=== PATIENT | female | born 2000 | race Two or more races ===

== ENCOUNTER 2021-07-03 06:48 | Emergency (ER) | payer BC, OTHER ==
[~2021-07-03] VITALS: Ht 170.2 cm; Wt 97.5 kg
[2021-07-03 07:05] VITALS: BP 137/87
[2021-07-03] MEDS ORDERED: ONDANSETRON ODT 4 MG TAB PO ONE (08:30)
[2021-07-03] MEDS ORDERED: ACETAMINOPHEN 325 MG TAB PO ONE (08:30)
[2021-07-03] MEDS ORDERED: cefTRIAXone SOD 1,000 MG VL IM ONE (09:00)
== END 2021-07-03 11:58 | disposition home or self-care (01) ==
LOC: ER 06:48 → EDBD 06:48 → ER 11:58
DX: S90.852A Superficial foreign body, left foot, initial encounter (principal); R10.11 Right upper quadrant pain; R11.0 Nausea; V43.62XA Car passenger injured in collision with other type car in traffic accident, initial encounter; Y93.89 Activity, other specified; Y92.410 Unspecified street and highway as the place of occurrence of the external cause; Y99.8 Other external cause status
CPT/HCPCS: 73630; 74176; 81025; 96372; 99285; J0696; Q0162

== ENCOUNTER 2024-05-23 21:24 | Emergency (ER) | payer BC, MEDICAID, OTHER ==
[~2024-05-23] VITALS: Ht 165.1 cm; Wt 121.5 kg
[2024-05-23 22:03] LABS: Basophils # (auto) 0 10 ^3/uL (0-0.2); Basophils % (auto) 0.5 % (0.0-2.0); Eosinophils # (auto) 0.1 10 ^3/uL (0-0.8); Eosinophils % (auto) 0.9 % (0.0-7.0); Hematocrit 37.3 % (36.0-46.0); Lymphocytes # (auto) 3.1 10 ^3/uL (0.4-5.4); Lymphocytes % (auto) 31.5 % (10.0-50.0); Mean Corpuscular Hemoglobin 31.2 pg (28.0-32.0); Mean Corpuscular Hgb Conc. 34.8 g/dL (32.0-36.0); Mean Corpuscular Volume 89.5 fL (80.0-100.0); Monocytes # (auto) 0.5 10 ^3/uL (0-1.3); Monocytes % (auto) 4.8 % (0.0-12.0); Neutrophils # (auto) 6.2 10 ^3/uL (1.6-8.6); Neutrophils % (auto) 62.3 % (37.0-80.0); Nucleated Red Blood Cells % 0.1 %; Platelet Count (auto) 365 10^3/uL (140-450); Red Blood Cells 4.17 10^6/uL (4.0-5.20); Red Cell Distribution Width 13.6 % (11.8-14.3); White Blood Cell 9.9 10^3/uL (4.4-10.8)
[2024-05-23 22:11] VITALS: PULSE 89; RESP 16; TEMP 97.8; O2SAT 97
--- NOTE | 2024-05-23 22:15 | ED.PDOC ---
GI ASSESSMENT HPI Comments 24-year-old female who came to ER for abdominal pain. Patient states she has been having intermittent episodes of upper abdominal pain for the past 2 months. States pain has worsened today associated bouts of nausea and vomiting. States pain will radiate to the back. Status post . Patient unsure if she is . 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 History Family History Family History: Reviewed,noncontributory to illness Social History Smoker: Non-Smoker Alcohol: Denies ETOH Use Drugs: Denies Drug Use Lives In: Home Constitutional: denies: chills, diaphoresis, fatigue, fever, malaise, sweats, weakness, others EENTM: denies: blurred vision, double vision, ear bleeding, ear discharge, ear drainage, ear pain, ear ringing, eye pain, eye redness, hearing loss, mouth pain, mouth swelling, nasal discharge, nose bleeding, nose congestion, nose pain, photophobia, tearing, throat pain, throat swelling, voice changes, others Respiratory: denies: cough, hemoptysis, orthopnea, SOB at rest, shortness of breath, SOB with excertion, stridor, wheezing, others Cardiovascular: denies: chest pain, dizzy spells, diaphoresis, Dyspnea on exertion, edema, irregular heart beat, left arm pain, lightheadedness, palpitations, PND, syncope, others Gastrointestinal: reports: abdominal pain, nausea, vomiting; denies: abdomen distended, blood streaked bowels, constipated, diarrhea, dysphagia, difficulty swallowing, hematemesis, melena, poor appetite, poor fluid intake, rectal b leeding, rectal pain, others Genitourinary: denies: abnormal vagina bleeding, burning, dyspareunia, dysuria, flank pain, frequency, hematuria, incontinence, pain, , vagina discharge, urgency, others Neurological: denies: dizziness, fainting, headache, left sided numbness, left sided weakness, numbness, paresthesia, pre-existing deficit, right sided numbness, right sided weakness, seizure, speech problems, tingling, tremors, weakness, others Musculoskeletal: denies: back pain, gout, joint pain, joint swelling, muscle pain, muscle stiffness, neck pain, others Integumetry: denies: bruises, change in color, change in hair/nails, dryness, laceration, lesions, lumps, rash, wounds, others Allergic/Immunocompromised: denies: Difficulty Healing, Frequent Infections, Hives, Itching, others Hematologic/Lymphatic: denies: anemia, blood clots, easy bleeding, easy bruising, swollen glands, others Endocrine: denies: excessive hunger, excessive sweating, excessive thirst, excessive urination, flushing, intolerance to cold, intolerance to heat, unexplained weight gain, unexplained weight loss, others Psychiatric: denies: anxiety, bipolar disorder, depression, hopeless, panic disorder, schizophrenia, sleepless, suicidal, others Physical Exam General Appearance: No Apparent Distress, Normal HEENT: Normal ENT Inspection, Pharynx Normal, TMs Normal Neck: Full Range of Motion, Non-Tender, Normal, Normal Inspection Respiratory: Chest Non-Tender, Lungs Clear, No Accessory Muscle Use, No Respiratory Distress, Normal Breath Sounds Cardiovascular: No Edema, No JVD, No Murmur, No Gallop, Normal Peripheral Pulses, Regular Rate/Rhythm Breast Exam: Deferred Gastrointestinal: Epigastric, No Organomegaly, No Pulsatile Mass, Normal Bowel Sounds, Soft, Tenderness Genitalia: Deferred Pelvic: Deferred Rectal: Deferred Extremities: No calf tenderness, Normal capillary refill, Normal inspection, Normal range of motion, Non-tender, No pedal edema Musculoskeletal : Apperance: Normal Neurologic: Alert, 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 Was a procedure done?: No GI differential Dx Differential Diagnosis: Cholecystitis, Constipation, Diverticular disease, Gastritis/PUD, Gastroenteritis, Pancreatitis, UTI, Urolithiasis, X-Ray, Labs, Meds, VS Vital Signs Date Time Temp Pulse Resp B/P (MAP) Pulse Ox O2 Delivery O2 Flow Rate FiO2 05/23/24 23:30 89 16 97 Room Air* 0 21 05/23/24 22:11 89 16 97 Room Air* 0 21 05/23/24 22:11 97.8 89 16 137/94 (108) 97 97.8 05/23/24 21:39 98.8 111 18 162/88 (112) 94 Lab Test 05/23/24 21:51 05/23/24 21:45 Range/Units White Blood Count 9.9 4.4-10.8 10^3/uL Red Blood Count 4.17 4.0-5.20 10^6/uL Hemoglobin 13.0 12.2-16.2 g/dL Hematocrit 37.3 36.0-46.0 % Mean Corpuscular Volume 89.5 80.0-100.0 fL Mean Corpuscular Hemoglobin 31.2 28.0-32.0 pg Mean Corpuscular Hemoglobin Concent 34.8 32.0-36.0 g/dL Red Cell Distribution Width 13.6 11.8-14.3 % Platelet Count 365 140-450 10^3/uL Mean Platelet Volume 7.7 6.9-10.8 fL Neutrophils (%) (Auto) 62.3 37.0-80.0 % Lymphocytes (%) (Auto) 31.5 10.0-50.0 % Monocytes (%) (Auto) 4.8 0.0-12.0 % Eosinophils (%) (Auto) 0.9 0.0-7.0 % Basophils (%) (Auto) 0.5 0.0-2.0 % Neutrophils # (Auto) 6.2 1.6-8.6 10 ^3/uL Lymphocytes # (Auto) 3.1 0.4-5.4 10 ^3/uL Monocytes # (Auto) 0.5 0-1.3 10 ^3/uL Eosinophils # (Auto) 0.1 0-0.8 10 ^3/uL Basophils # (Auto) 0 0-0.2 10 ^3/uL Nucleated Red Blood Cells 0.1 % Sodium Level 141 136-145 mmol/L Potassium Level 3.9 3.5-5.1 mmol/L Chloride Level 109 H 98-107 mmol/L Carbon Dioxide Level 27 20-31 mmol/L Anion Gap 5 5-15 Blood Urea Nitrogen 9 9-23 mg/dL Creatinine 0.70 0.550-1.02 mg/dL Glomerular Filtration Rate Calc 125 >90 mL/min BUN/Creatinine Ratio 12.9 10.0-20.0 Serum Glucose 110 H 74-106 mg/dL Calcium Level 9.4 8.7-10.4 mg/dL Total Bilirubin 0.3 0.2-1.0 mg/dL Aspartate Amino Transferase (AST) 21 13-40 U/L Alanine Aminotransferase (ALT) 24 7-40 U/L Alkaline Phosphatase 71 46-116 U/L Total Protein 6.5 5.7-8.2 g/dL Albumin 4.1 3.2-4.8 g/dL Lipase 29 12-53 U/L Urine Color Light-yellow Yellow Urine Clarity Clear Clear Urine pH 5.5 5.0-9.0 Urine Specific [place] 1.030 1.001-1.035 Urine Protein Negative Negative Urine Ketones Negative Negative Urine Blood Negative Negative /uL Urine Nitrite Negative Negative Urine Bilirubin Negative Negative Urine Urobilinogen Normal Negative mg/dL Urine Leukocyte Esterase 1+ Negative /uL Urine RBC 3 0 - 4 /hpf Urine WBC 1 0 - 5 /hpf Urine Squamous Epithelial Cells Few <5 /hpf Urine Bacteria Few H None Seen /hpf Urine Mucus Few None Seen Urine Yeast (Budding) None seen None Seen /hpf Urine Glucose Normal Normal mg/dL Urine Test Negative Negative Current Medications Medications (Trade) Dose Ordered Sig/Neyda Route Start Time Stop Time Status Last Admin Sodium Chloride 1,000 ml @ 1,000 mls/hr Q1H ONCE IV 05/23/24 22:00 05/23/24 22:59 DC 05/23/24 22:19 Ondansetron HCl (Zofran) 4 mg ONCE ONCE IV 05/23/24 22:00 05/23/24 22:01 DC 05/23/24 22:19 Time of 1ST Reevaluation: 22:10 Reevaluation 1ST: Unchanged Patient Education/Counseling: Diagnosis, Treatment Family Education/Counseling: No Family Present Departure 1 Departure Time of Disposition: 02:56 (Patient presented with abdominal pain that was concerning for possible appendicits, gastritis, cholecystitis, colitis, gastroenteritis, or orther possible surgical emergency. Data: 1. I ordered and reviewed the result of at least 3 labs including a CBC, BMP, and Urinalysis. 2. I independently interpreted the following tests: Ultrasound is concerning for gallstones.Risk:This patient has a high risk of morbidity due to further diagnostic testing or treatment and may suffer from an acute abdominal process disorder. Fortunately workup reveals biliary colic and patient can be safely discharged to home with outpatient follow up.) Impression: Primary Impression: Biliary colic Disposition: HOME / SELF CARE / HOMELESS Condition: Stable Additional Instructions: You have gallbladder stones. For pain you can take the followinam: Ibuprofen 400mg with food Noon: Acetaminophen 1000mg 4pm: Ibuprofen 400mg with food 8pm: Acetaminophen 1000mg Please take as directed. You were referred to a general surgeon. Please call for an appointment. If your symptoms worsen or you have any other concerns then please return to the ER. Discharged With: Self Critical Care Note Critical Care Time?: Yes Critical care comment: Intractable abdominal pain Authorized and Performed by: Lay Chamberlain MD Total critical care time: Approximately 38 minutes Due to a high probability of clinically significant, life threatening deterioration, the patient required my highest level of preparedness to intervene emergently and I personally spent this critical care time directly and personally managing the patient. This critical care time included obtaining a history; examining the patient; pulse oximetry; ordering and review of studies; arranging urgent treatment with development of a management plan; evaluation of patient's response to treatment; frequent reassessment; and, discussions with other providers. This critical care time was performed to assess and manage the high probability of imminent, life-threatening deterioration that could result in multi-organ failure. It was exclusive of separately billable procedures and treating other patients and teaching time. Please see my other sections and the rest of the note for further information on patient assessment and treatment. Stability Stability form required: No Heart Score Heart Score: Heart Score Response (Comments) Value History N/A 0 EKG N/A 0 Age N/A 0 Risk Factors N/A 0 Troponin N/A 0 Total 0 I personally scribed for LAY CHAMBERLAIN MD ([email or web address]) on 05/23/24 at 22:15. Electronically submitted by Jun Castillo ([email or web address]). LAY CHAMBERLAIN MD May 23, 2024 22:15
[2024-05-23] MEDS: ONDANSETRON HCL 4 MG/2 ML VIAL IV ONE (22:19)
[2024-05-23] MEDS: SODIUM CHLORIDE 0.9% 1,000 ML IV ONE (22:19)
[2024-05-23 22:22] LABS: Alanine Aminotransferase 24 U/L (7-40); Albumin 4.1 g/dL (3.2-4.8); Alkaline Phosphatase 71 U/L (46-116); Anion Gap 5 (5-15); Aspartate Aminotransferase 21 U/L (13-40); BUN/Creatinine Ratio 12.9 (10.0-20.0); Bilirubin, Total 0.3 mg/dL (0.2-1.0); Blood Urea Nitrogen 9 mg/dL (9-23); Calcium 9.4 mg/dL (8.7-10.4); Carbon Dioxide 27 mmol/L (20-31); Chloride 109 mmol/L (98-107); Glucose 110 mg/dL (74-106); Potassium 3.9 mmol/L (3.5-5.1); Sodium 141 mmol/L (136-145); Total Protein 6.5 g/dL (5.7-8.2)
[2024-05-23 22:32] LABS: Lipase 29 U/L (12-53)
[2024-05-23 23:30] VITALS: PULSE 89; RESP 16; O2SAT 97
[2024-05-23 23:32] LABS: Urine Bacteria FEW /hpf (None Seen); Urine Blood Negative /uL (Negative); Urine Budding Yeast None Seen /hpf (None Seen); Urine Clarity Clear (Clear); Urine Color Light-Yellow (Yellow); Urine Mucus FEW (None Seen); Urine Protein, UAD Negative (Negative); Urine Urobilinogen Normal (Negative); Urine WBC 1 /hpf (0 - 5); Urine pH 5.5 (5.0-9.0)
--- NOTE | 2024-05-24 02:35 | DVH ---
INDICATION: Pain. TECHNIQUE: Multiple real-time sonographic images of the abdomen were obtained. COMPARISON: None FINDINGS: The liver is heterogeneoous in echogenicity. The liver measures 19cm. No intrahepatic lindsay iary ductal dilatation is noted. The gallbladder wall measures 0.1 cm and is unremarkable. gallstones are seen. The common duct measures 0.4 cm and is unremarkable. No pericholecystic fluid is noted. The right kidney measures 9cm. No hydronephrosis. The pancreas is not well visualized due to obscuration from bowel gas. The visualized portions of the IVC and aorta are grossly unremarkable. IMPRESSION: Gallstones.
[2024-05-24 03:06] VITALS: BP 104/57; PULSE 88; RESP 14; O2SAT 96
== END 2024-05-24 03:18 | disposition home or self-care (01) ==
LOC: ER 21:24
DX: K80.50 Calculus of bile duct without cholangitis or cholecystitis without obstruction (principal); Z32.02 Encounter for pregnancy test, result negative
CPT/HCPCS: 36415; 76705; 80053; 81001; 81025; 83690; 85025; 96361; 96374; 99285; J2405; J7030

== ENCOUNTER 2024-08-08 18:53 | Inpatient (IN) | payer MEDICAID ==
[~2024-08-08] VITALS: Ht 167.6 cm; Wt 124.9 kg
[2024-08-08 19:26] LABS: Urine Bacteria None Seen /hpf (None Seen)
[2024-08-08 19:44] LABS: Urine Blood Negative /uL (Negative); Urine Clarity Clear (Clear); Urine Color Yellow (Yellow); Urine Protein, UAD Negative (Negative); Urine Specific Gravity 1.006 (1.001-1.035); Urine Squamous Epithelial Cell FEW /hpf (<5); Urine Urobilinogen Normal (Negative); Urine WBC 1 /HPF (0-5)
[2024-08-08 19:52] LABS: Basophils # (auto) 0 10 ^3/uL (0-0.2); Basophils % (auto) 0.1 % (0.0-2.0); Eosinophils # (auto) 0 10 ^3/uL (0-0.8); Hematocrit 42.9 % (36.0-46.0); Hemoglobin 14.5 g/dL (12.2-16.2); Lymphocytes # (auto) 2.1 10 ^3/uL (0.4-5.4); Lymphocytes % (auto) 10.6 % (10.0-50.0); Mean Corpuscular Hemoglobin 30.2 pg (28.0-32.0); Mean Corpuscular Hgb Conc. 33.7 g/dL (32.0-36.0); Mean Corpuscular Volume 89.5 fL (80.0-100.0); Monocytes # (auto) 0.8 10 ^3/uL (0-1.3); Monocytes % (auto) 4.3 % (0.0-12.0); Neutrophils # (auto) 16.8 10 ^3/uL (1.6-8.6); Platelet Count (auto) 450 10^3/uL (140-450); Red Blood Cells 4.79 10^6/uL (4.0-5.20); Red Cell Distribution Width 13.6 % (11.8-14.3); White Blood Cell 19.8 10^3/uL (4.4-10.8)
[2024-08-08 20:10] VITALS: PULSE 113; RESP 16; O2SAT 96
[2024-08-08 20:13] LABS: Albumin 4.7 g/dL (3.2-4.8); Anion Gap 10 (5-15); BUN/Creatinine Ratio 8.2 (10.0-20.0); Calcium 10.2 mg/dL (8.7-10.4); Carbon Dioxide 21 mmol/L (20-31); Chloride 106 mmol/L (98-107); Potassium 3.8 mmol/L (3.5-5.1); Sodium 137 mmol/L (136-145)
[2024-08-08 20:14] LABS: Total Protein 7.7 g/dL (5.7-8.2)
[2024-08-08 20:18] LABS: Alanine Aminotransferase 484 U/L (7-40); Alkaline Phosphatase 163 U/L (46-116); Aspartate Aminotransferase 333 U/L (13-40); Bilirubin, Total 1.7 mg/dL (0.2-1.0); Blood Urea Nitrogen 6 mg/dL (9-23); Glucose 113 mg/dL (74-106)
[2024-08-08] MEDS: ONDANSETRON ODT 4 MG TAB PO ONE (20:19)
[2024-08-08] MEDS: KETOROLAC TROMETH 30 MG/ML 1ML VIAL IM ONE (20:19)
[2024-08-08 20:21] LABS: Lipase 1044 U/L (12-53)
--- NOTE | 2024-08-08 21:43 | DVH ---
Exam: CT CT AB PEL WO CON-NO ORAL OR IV History: ABD PAIN Comparison Study: None available at time of dictation. TECHNIQUE: Multidetector CT of the abdomen was performed from lung bases to pubic symphysis. Imaging was performed without IV contrast. Axial, coronal and sagittal multiplanar reformats were obtained fr om the axial data set by the technologist. Radiation Dose Information: CT Dose: CTDI volume is 26.16 mGy. Dose-length product is 1608.85 mGy*cm FINDINGS: Evaluation of solid organs is limited due to lack of intravenous contrast use. Findings: Lung Bases: No acute or significant lung base finding. Normal heart size. No pleural or pericardial effusion. Liver: The liver is normal in size. No focal lesions. Gallbladder and Biliary Tree: Is contracted with no calcified gallstones Spleen: Unremarkable Pancreas: Mild peripancreatic inflammatory changes in the surrounding mesenteric fat. Correlate for possible pancreatitis. Adrenal Glands: Unremarkable Kidneys: Kidneys are grossly normal without calculi or hydronephrosis. Bladder: Grossly unremarkable for degree of distention. Bowel: The stomach is grossly normal in appearance. Small bowel and colon are normal in caliber and d istribution. The appendix is not visualized; however, no secondary findings of acute appendicitis id entified. Ascites: Absent Lymphadenopathy: No mesenteric, retroperitoneal or periportal lymphadenopathy. Abdominal Wall and Mesentery: Unremarkable. Vasculature: The visualized abdominal aorta is normal in size and caliber. Evaluation of abdominal a nd pelvic vessels is limited due to lack of intravenous contrast. Pelvic Organs: Unremarkable Musculoskeletal: No aggressive focal bony lesions, acute fractures or dislocation. Soft tissues: Unremarkable IMPRESSION: 1. No nephrolithiasis or hydronephrosis. 2. Mild peripancreatic inflammatory changes correlate for pancreatitis. 3. No findings of bowel obstruction 4. Gallbladder is contracted no calcified gallstones 5. Radiation optimization: All CT scans at this facility use at least one of these dose optimization te chniques: automated exposure control mA and/or kV adjustment per patient size (includes targeted exa ms where dose is matched to clinical indication) or iterative reconstruction.
--- NOTE | 2024-08-08 21:58 | ED.PDOC ---
GI ASSESSMENT HPI Comments 24-year-old female complaining of upper abdominal pain which started two days ago. Has been having intermittent nausea and vomiting. No diarrhea. No constipation. No new foods no new medications. Nothing makes it better, eating makes the pain worse. 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 History Family History Family History: Reviewed,noncontributory to illness Social History Smoker: Non-Smoker Alcohol: Denies ETOH Use Drugs: Denies Drug Use Lives In: Home Constitutional: denies: chills, diaphoresis, fatigue, fever, malaise, sweats, weakness, others EENTM: denies: blurred vision, double vision, ear bleeding, ear discharge, ear drainage, ear pain, ear ringing, eye pain, eye redness, hearing loss, mouth pain, mouth swelling, nasal discharge, nose bleeding, nose congestion, nose pain, photophobia, tearing, throat pain, throat swelling, voice changes, others Respiratory: denies: cough, hemoptysis, orthopnea, SOB at rest, shortness of breath, SOB with excertion, stridor, wheezing, others Cardiovascular: denies: chest pain, dizzy spells, diaphoresis, Dyspnea on exertion, edema, irregular heart beat, left arm pain, lightheadedness, palpitations, PND, syncope, others Gastrointestinal: reports: abdominal pain, nausea, vomiting; denies: abdomen distended, blood streaked bowels, constipated, diarrhea, dysphagia, difficulty swallowing, hematemesis, melena, poor appetite, poor fluid intake, rectal bleeding, rectal pain, others Genitourinary: denies: abnormal vagina bleeding, burning, dyspareunia, dysuria, flank pain, frequency, hematuria, incontinence, pain, , vagina discharge, urgency, others Neurological: denies: dizziness, fainting, headache, left sided numbness, left sided weakness, numbness, paresthesia, pre-existing deficit, right sided numbness, right sided weakness, seizure, speech problems, tingling, tremors, weakness, others Musculoskeletal: denies: back pain, gout, joint pain, joint swelling, muscle pain, muscle stiffness, neck pain, others Integumetry: denies: bruises, change in color, change in hair/nails, dryness, laceration, lesions, lumps, rash, wounds, others Allergic/Immunocompromised: denies: Difficulty Healing, Frequent Infections, Hives, Itching, others Physical Exam General Appearance: No Apparent Distress, Normal HEENT: Normal ENT Inspection, Pharynx Normal, TMs Normal Neck: Full Range of Motion, Non-Tender, Normal, Normal Inspection Respiratory: Chest Non-Tender, Lungs Clear, No Accessory Muscle Use, No Respiratory Distress, Normal Breath Sounds Cardiovascular: No Edema, No JVD, No Murmur, No Gallop, Normal Peripheral Pulses, Regular Rate/Rhythm Breast Exam: Deferred Gastrointestinal: No Organomegaly, Non Tender, No Pulsatile Mass, Normal Bowel Sounds, Soft Genitalia: Deferred Pelvic: Deferred Rectal: Deferred Extremities: No calf tenderness, Normal capillary refill, Normal inspection, Normal range of motion, Non-tender, No pedal edema Musculoskeletal : Apperance: Normal Neurologic: Alert, 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 Was a procedure done?: No GI differential Dx Differential Diagnosis: Gastroenteritis, GI hemorrhage, Pancreatitis X-Ray, Labs, Meds, VS Vital Signs Date Time Temp Pulse Resp B/P (MAP) Pulse Ox O2 Delivery O2 Flow Rate FiO2 08/08/24 20:10 98.7 113 105/82 (90) 96 98.7 08/08/24 20:10 113 16 96 Room Air* 0 21 08/08/24 19:11 98.4 121 18 149/89 (109) 96 Lab Test 08/08/24 19:27 08/08/24 19:15 Range/Units White Blood Count 19.8 H 4.4-10.8 10^3/uL Red Blood Count 4.79 4.0-5.20 10^6/uL Hemoglobin 14.5 12.2-16.2 g/dL Hematocrit 42.9 36.0-46.0 % Mean Corpuscular Volume 89.5 80.0-100.0 fL Mean Corpuscular Hemoglobin 30.2 28.0-32.0 pg Mean Corpuscular Hemoglobin Concent 33.7 32.0-36.0 g/dL Red Cell Distribution Width 13.6 11.8-14.3 % Platelet Count 450 140-450 10^3/uL Mean Platelet Volume 8.1 6.9-10.8 fL Neutrophils (%) (Auto) 85.0 H 37.0-80.0 % Lymphocytes (%) (Auto) 10.6 10.0-50.0 % Monocytes (%) (Auto) 4.3 0.0-12.0 % Eosinophils (%) (Auto) 0.0 0.0-7.0 % Basophils (%) (Auto) 0.1 0.0-2.0 % Neutrophils # (Auto) 16.8 H 1.6-8.6 10 ^3/uL Lymphocytes # (Auto) 2.1 0.4-5.4 10 ^3/uL Monocytes # (Auto) 0.8 0-1.3 10 ^3/uL Eosinophils # (Auto) 0 0-0.8 10 ^3/uL Basophils # (Auto) 0 0-0.2 10 ^3/uL Nucleated Red Blood Cells 0.0 % Sodium Level 137 136-145 mmol/L Potassium Level 3.8 3.5-5.1 mmol/L Chloride Level 106 98-107 mmol/L Carbon Dioxide Level 21 20-31 mmol/L Anion Gap 10 5-15 Blood Urea Nitrogen 6 L 9-23 mg/dL Creatinine 0.73 0.550-1.02 mg/dL Glomerular Filtration Rate Calc 118 >90 mL/min BUN/Creatinine Ratio 8.2 L 10.0-20.0 Serum Glucose 113 H 74-106 mg/dL Calcium Level 10.2 8.7-10.4 mg/dL Total Bilirubin 1.7 H 0.2-1.0 mg/dL Aspartate Amino Transferase (AST) 333 H 13-40 U/L Alanine Aminotransferase (ALT) 484 H 7-40 U/L Alkaline Phosphatase 163 H 46-116 U/L Total Protein 7.7 5.7-8.2 g/dL Albumin 4.7 3.2-4.8 g/dL Lipase 1044 H 12-53 U/L Urine Color Yellow Yellow Urine Clarity Clear Clear Urine pH 7.0 5.0-9.0 Urine Specific [place] 1.006 1.001-1.035 Urine Protein Negative Negative Urine Ketones 1+ H Negative Urine Blood Negative Negative /uL Urine Nitrite Negative Negative Urine Bilirubin Negative Negative Urine Urobilinogen Normal Negative mg/dL Urine Leukocyte Esterase Negative Negative /uL Urine RBC 2 0 - 4 /hpf Urine Microscopic WBC 1 0-5 /HPF Urine Squamous Epithelial Cells Few <5 /hpf Urine Bacteria None seen None Seen /hpf Urine Glucose Normal Normal mg/dL Urine Test Negative Negative Current Medications Medications (Trade) Dose Ordered Sig/Neyda Route Start Time Stop Time Status Last Admin Ketorolac Tromethamine (Toradol Injection) 30 mg ONCE ONCE IM 08/08/24 19:15 08/08/24 19:16 DC 08/08/24 20:19 Ondansetron HCl (Zofran Po) 4 mg ONCE ONCE PO 08/08/24 19:15 08/08/24 19:16 DC 08/08/24 20:19 X-Ray, Labs, Meds, VS Comment Patient will be admitted for acute pancreatitis and a retractable abdominal pain Patient was started on Rocephin and IV hydration Time of 1ST Reevaluation: 21:56 Reevaluation 1ST: Unchanged Patient Education/Counseling: Diagnosis, Treatment Family Education/Counseling: Diagnosis, Treatment Departure 1 Departure Time of Disposition: 21:55 Impression: Primary Impression: Pancreatitis, acute Qualified Codes: K85.00 - Idiopathic acute pancreatitis without necrosis or infection Additional Impression: Abdominal pain Qualified Codes: R10.84 - Generalized abdominal pain Disposition: ADMITTED INPATIENT Condition: Fair Discharged With: Self Critical Care Note Critical Care Time?: No Stability Stability form required: No Heart Score Heart Score: Heart Score Response (Comments) Value History N/A 0 EKG N/A 0 Age N/A 0 Risk Factors N/A 0 Troponin N/A 0 Total 0 WILVER NGUYỄN Aug 08, 2024 21:58
[2024-08-08] MEDS: SODIUM CHLORIDE 0.9% 1,000 ML IV ONE (22:38)
[2024-08-08] MEDS: CIPROFLOXACIN 400MG/200ML 200 ML IV ONE (22:39)
[2024-08-08] MEDS: metroNIDAZOLE 500MG/100ML 100 ML IV ONE (23:12)
--- NOTE | 2024-08-08 23:39 | DVHHPRES ---
History of Present Illness Resident Creating Document: BRAD FLETCHER RESIDENT History of Present Illness Patient is a 24-year-old female with past medical history of gallstones who came in due to abdominal pain. According to the patient abdominal pain started yesterday 1 hour after she ate a sandwich, she describes the pain as constant, excruciating, 10/10 at onset, worsened with lying down, sneezing, coughing. Pain is accompanied with 5 episodes of vomiting today and dry heaving. Patient was diagnosed with strep throat last week and completed a course of antibiotic, last dose was last week. Patient was noted to have a lipase of 1044, CT abdomen pelvis showed mild peripancreatic inflammatory changes correlate for pancreatitis. Gallbladder ultrasound showed cholelithiasis with gallbladder wall thickening and positive sonographic Patel sign concerning for acute cholecystitis. Peripancreatic free fluid. WBC count was 19.8, total bilirubin 1.7, AST 333, ALT 484 and alkaline phosphatase 163 Past Medical History Cholelithiasis Past Surgical History section Smoke: No ALCOHOL: none Drugs: None Lives: with Family Review of Systems Constitutional: Yes: Fever, Chills, Malaise; No: Sweats, Weakness, Other Eyes: No: Pain, Vision change, Conjunctivae inflammation, Eyelid inflammation, Other, Redness ENT: No: Ear pain, Ear discharge, Nose pain, Nose discharge, Nose congestion, Mouth pain, Mouth swelling, Throat pain, Throat swelling, Other Respiratory: No: Cough, Dry, Shortness of breath, SOB with excertion, Wheezing, Hemoptysis, Pleuritic Pain, Sputum, Wheezing, Other Cardiovascular: Palpitations; No: Chest Pain, Orthopnea, Paroxysmal Noc. Dyspnea, Edema, Lt Headedness, Other Gastrointestinal: Nausea, Vomiting, Abdominal Pain; No: Diarrhea, Constipation, Melena, Hematochezia, Other Genitourinary: No Dysuria, No Frequency, No Incontinence, No Hematuria, No Retention, No Other Musculoskeletal: No: other, neck pain, shoulder pain, arm pain, back pain, hand pain, leg pain, foot pain Skin: No: Rash, Lesions, Jaundice, Bruising, Other Neurological: No: Weakness, Numbness, Incoordination, Change in speech, Confusion, Seizures, Other Allergies: Coded Allergies: NO KNOWN ALLERGIES (Unverified , 07/03/21) Exam Vital Signs Vital Signs Date Time Temp Pulse Resp B/P (MAP) Pulse Ox O2 Delivery O2 Flow Rate FiO2 08/08/24 23:02 99 20 96 Room Air 08/08/24 22:43 98.6 96/57 (70) 98.6 08/08/24 20:10 0 21 General Appearance: Alert, Oriented X3, Cooperative, mild distress HEENT: Atraumatic, PERRLA, EOMI, Mucous membr. moist/pink Respiratory: Clear to auscultation, Normal air movement Cardiovascular: Regular rate, Normal S1, Normal S2 Abdominal: Normal bowel sounds, Other (Generalized abdominal tenderness to palpation, most pronounced in the mid abdominal area) Extremities: No clubbing, No cyanosis, No edema Skin: No significant lesion Neuro: Normal gait, Normal speech, Strength at 5/5 X4 ext, Sensation intact Psych/Mental Status: Mental status NL, Mood NL Labs/Xrays Labs Test 08/08/24 19:27 08/08/24 19:15 Range/Units White Blood Count 19.8 H 4.4-10.8 10^3/uL Red Blood Count 4.79 4.0-5.20 10^6/uL Hemoglobin 14.5 12.2-16.2 g/dL Hematocrit 42.9 36.0-46.0 % Mean Corpuscular Volume 89.5 80.0-100.0 fL Mean Corpuscular Hemoglobin 30.2 28.0-32.0 pg Mean Corpuscular Hemoglobin Concent 33.7 32.0-36.0 g/dL Red Cell Distribution Width 13.6 11.8-14.3 % Platelet Count 450 140-450 10^3/uL Mean Platelet Volume 8.1 6.9-10.8 fL Neutrophils (%) (Auto) 85.0 H 37.0-80.0 % Lymphocytes (%) (Auto) 10.6 10.0-50.0 % Monocytes (%) (Auto) 4.3 0.0-12.0 % Eosinophils (%) (Auto) 0.0 0.0-7.0 % Basophils (%) (Auto) 0.1 0.0-2.0 % Neutrophils # (Auto) 16.8 H 1.6-8.6 10 ^3/uL Lymphocytes # (Auto) 2.1 0.4-5.4 10 ^3/uL Monocytes # (Auto) 0.8 0-1.3 10 ^3/uL Eosinophils # (Auto) 0 0-0.8 10 ^3/uL Basophils # (Auto) 0 0-0.2 10 ^3/uL Nucleated Red Blood Cells 0.0 % Sodium Level 137 136-145 mmol/L Potassium Level 3.8 3.5-5.1 mmol/L Chloride Level 106 98-107 mmol/L Carbon Dioxide Level 21 20-31 mmol/L Anion Gap 10 5-15 Blood Urea Nitrogen 6 L 9-23 mg/dL Creatinine 0.73 0.550-1.02 mg/dL Glomerular Filtration Rate Calc 118 >90 mL/min BUN/Creatinine Ratio 8.2 L 10.0-20.0 Serum Glucose 113 H 74-106 mg/dL Calcium Level 10.2 8.7-10.4 mg/dL Total Bilirubin 1.7 H 0.2-1.0 mg/dL Aspartate Amino Transferase (AST) 333 H 13-40 U/L Alanine Aminotransferase (ALT) 484 H 7-40 U/L Alkaline Phosphatase 163 H 46-116 U/L Total Protein 7.7 5.7-8.2 g/dL Albumin 4.7 3.2-4.8 g/dL Lipase 1044 H 12-53 U/L Urine Color Yellow Yellow Urine Clarity Clear Clear Urine pH 7.0 5.0-9.0 Urine Specific [place] 1.006 1.001-1.035 Urine Protein Negative Negative Urine Ketones 1+ H Negative Urine Blood Negative Negative /uL Urine Nitrite Negative Negative Urine Bilirubin Negative Negative Urine Urobilinogen Normal Negative mg/dL Urine Leukocyte Esterase Negative Negative /uL Urine RBC 2 0 - 4 /hpf Urine Microscopic WBC 1 0-5 /HPF Urine Squamous Epithelial Cells Few <5 /hpf Urine Bacteria None seen None Seen /hpf Urine Glucose Normal Normal mg/dL Urine Test Negative Negative Assessment/Plan Assessment/Plan Acute pancreatitis likely due to gallstones; Isabell criteria 2 points at admission Acute cholecystitis with positive sonographic Patel sign Transaminitis due to above - serum lipase 1044 - CT abdomen pelvis: No nephrolithiasis or hydronephrosis. Mild peripancreatic inflammatory changes correlate for pancreatitis. No findings of bowel obstruction Gallbladder is contracted no calcified gallstones - abdominal USG: Cholelithiasis with gallbladder wall thickening and positive sonographic Patel's sign concerning for acute cholecystitis. There is peripancreatic free fluid. If there is concern for gallstone pancreatitis consider further evaluation with MRCP or contrast-enhanced MRI abdomen. Hepatic steatosis. - IV NS 2.5 L bolus, followed by IV NS at 200 cc/hour - IV meropenem Q 8 hours - IV Zofran 4 mg as needed - ordered MRCP DVT prophylaxis: SCDs Goals of care: Full code, discussed for >16 minutes on 08/08/2024 Plan discussed with patient Plan discussed with Dr. Freed Plan discussed with: Patient, Other (RN) My Orders Orders - BRAD FLETCHER RESIDENT Procedure Category Date Status Time Admit ADMIT 08/08/24 Transmitted 23:31 Code Status CODE 08/08/24 Transmitted 23:31 Vital Signs [facility] 08/08/24 Transmitted 23:31 Review Orders With [facility] 08/08/24 Transmitted Adm.Md 23:31 Notify Md Of Changes [facility] 08/08/24 Verified From Base 23:31 Advance Directive [facility] 08/08/24 Verified 23:31 Patient Condition ORDERS 08/08/24 Verified 23:31 Allergies [facility] 08/08/24 Verified 23:31 Notify Md Of Changes [facility] 08/08/24 Verified From Base 23:31 Abdomen Limited US 08/08/24 Transmitted 23:31 Lipid Panel LAB 08/08/24 Transmitted 23:31 Lactate Dehydrogenase LAB 08/08/24 Transmitted 23:31 Calcium LAB 08/08/24 Transmitted 23:31 Chest Portable XY 08/08/24 Transmitted 23:31 Prothrombin Time W/ LAB 08/08/24 Transmitted INR 23:31 Bilirubin, Direct LAB 08/08/24 Transmitted 23:31 Lactic Acid W/ Reflex LAB 08/08/24 Transmitted Order 23:31 NS PHA 08/08/24 Verified 23:45 NS PHA 08/08/24 Verified 23:45 Meropenem 1gm Ivpb X PHA 08/08/24 Verified ONE 23:45 Meropenem 1gm PHA 08/09/24 Verified Q8h(Gfr>50) 06:00 Date of Service: Aug 08, 2024 Billing Provider: MAXIMILIANO FREED MD Common Visit Codes: [id number] INP/OBS CARE (HIGH) BRAD FLETCHER Aug 08, 2024 23:39 MAXIMILIANO FREED MD Aug 10, 2024 00:27
[2024-08-09] VITALS (7 sets, daily range): BP systolic 100–120; BP diastolic 52–75; PULSE 78–101; RESP 16–19; TEMP 97.9–99.7; O2SAT 95–100
[2024-08-09] MEDS: SODIUM CHLORIDE 0.9% 1,000 ML IV ONE (00:06)
[2024-08-09] MEDS: SODIUM CHLORIDE 0.9% 500 ML IV ONE (00:06)
--- NOTE | 2024-08-09 00:29 | DVH ---
CHEST RADIOGRAPH Indication: pancreatitis Technique: Single frontal view of the chest was obtained Comparison: None FINDINGS: Lines and Tubes: None Lungs: Clear Pleura: No effusion. No pneumothorax. Cardiomediastinal contours: Unremarkable Bones: Unremarkable IMPRESSION: Clear lungs.
[2024-08-09 00:31] LABS: INR 1.05 (0.9-1.15); Prothrombin Time 11.1 sec (9.3-11.8)
--- NOTE | 2024-08-09 01:04 | DVH ---
INDICATION: gallstone pancreatitis TECHNIQUE: Multiple real-time sonographic images were obtained of the right upper quadrant. COMPARISON: US GALLBLADDER on DOS: 05/24/24 FINDINGS: The liver demonstrates heterogeneous echotexture without focal mass lesions. The liver jane sures 16 cm. There is no intrahepatic or extrahepatic ductal dilatation. The common duct measures 0.5 cm. Distended gallbladder demonstrates multiple gallstones. Positive sonographic Patel's sign. The gall bladder wall measures 0.5 cm and is within normal limits. The right kidney measures 9 cm. The right kidney is normal in contour, size, and shape. The echogen icity is normal. There is no hydronephrosis. The pancreas is not well visualized due to overlying bowel gas. There is mild peripancreatic edema. IMPRESSION: Cholelithiasis with gallbladder wall thickening and positive sonographic Patel's sign concerning for acute cholecystitis. There is peripancreatic free fluid. If there is concern for gallstone pancreatitis consider further evaluation with MRCP or contrast-enhanced MRI abdomen. Hepatic steatosis.
[2024-08-09] MEDS: MEROPENEM 1GM IVPB 50 ML IV ONE (01:08)
[2024-08-09] MEDS: ONDANSETRON HCL 4 MG/2 ML VIAL IV PRN (01:29)
[2024-08-09 01:37] LABS: Calcium 8.9 mg/dL (8.7-10.4)
[2024-08-09 01:44] LABS: Bilirubin, Direct 0.6 mg/dL (<0.3)
[2024-08-09] MEDS: SODIUM CHLORIDE 0.9% 1,000 ML IV SCH (05:30)
[2024-08-09 07:43] LABS: Basophils # (auto) 0 10 ^3/uL (0-0.2); Basophils % (auto) 0.2 % (0.0-2.0); Eosinophils # (auto) 0 10 ^3/uL (0-0.8); Eosinophils % (auto) 0.2 % (0.0-7.0); Lymphocytes # (auto) 2.4 10 ^3/uL (0.4-5.4); Lymphocytes % (auto) 17.1 % (10.0-50.0); Mean Corpuscular Hemoglobin 30.1 pg (28.0-32.0); Mean Corpuscular Hgb Conc. 33.3 g/dL (32.0-36.0); Mean Corpuscular Volume 90.2 fL (80.0-100.0); Monocytes % (auto) 7.1 % (0.0-12.0); Neutrophils # (auto) 10.8 10 ^3/uL (1.6-8.6); Neutrophils % (auto) 75.4 % (37.0-80.0); Platelet Count (auto) 343 10^3/uL (140-450); Red Blood Cells 4.32 10^6/uL (4.0-5.20); Red Cell Distribution Width 13.8 % (11.8-14.3); White Blood Cell 14.3 10^3/uL (4.4-10.8)
[2024-08-09 07:59] LABS: Anion Gap 8 (5-15); BUN/Creatinine Ratio 7.3 (10.0-20.0); Calcium 8.9 mg/dL (8.7-10.4); Carbon Dioxide 24 mmol/L (20-31); Chloride 107 mmol/L (98-107); Glucose 95 mg/dL (74-106); Potassium 3.6 mmol/L (3.5-5.1); Sodium 139 mmol/L (136-145)
[2024-08-09 08:00] LABS: Albumin 4.2 g/dL (3.2-4.8); Total Protein 6.7 g/dL (5.7-8.2)
[2024-08-09 08:09] LABS: Alanine Aminotransferase 325 U/L (7-40); Alkaline Phosphatase 128 U/L (46-116); Aspartate Aminotransferase 132 U/L (13-40); Blood Urea Nitrogen 6 mg/dL (9-23)
[2024-08-09] MEDS: HYDROmorphone HCL 2 MG/ML VL/or syr IV ONE (08:15)
[2024-08-09] MEDS: MEROPENEM 1GM IVPB 50 ML IV SCH (08:24)
--- NOTE | 2024-08-09 13:45 | DVH ---
Clinical history: Pancreatitis CLINICAL DATA: Pancreatitis COMPARISON: Ultrasound of 08 09 2024 TECHNIQUE: MR imaging of the abdomen was performed using routine protocol. The following sequences w ere obtained: Three plane localizer Coronal T2 HASTE large FOV/ small FOV Axial T1 pappas in and out of phase Axial T2 HASTE and STIR SagittalT2 fat Sat Precontrast 3-D FLASH Postcontrast 3-D FLASH: Arterial, venous and delayed phases. Coronal MRCP 3D FINDINGS: Lung bases: Limited view of the lung bases demonstrates minimal atelectasis. No pleural effusion is seen. Abdomen: Multiple gallstones consistent with prior ultrasound identified. No fluid surrounding the gallbladder . No choledocholithiasis. Normal common bile duct. Normal kidneys. Normal adrenal glands. No hepatosp lenomegaly. No retroperitoneal adenopathy. Normal aorta. 1.5 cm left renal cyst. There is very minima l peripancreatic free fluid anteriorly ventral to the body of the pancreas. The pancreas intrinsicall y appears unremarkable. No bowel obstruction. Impression: Gallstones No fluid surrounding the gallbladder. Gallbladder wall within normal limits. No choledocholithiasis. Normal pancreatic duct. Tiny amount of fluid ventral to the body of the pancreas. Normal appearance to the common bile duct.
--- NOTE | 2024-08-09 15:02 | DVHINCON2 ---
Date of service: Aug 09, 2024 History of Present Illness 24-year-old morbidly obese female complaining of one day history of epigastric abdominal pain associated with nausea and vomiting. Past Medical History Morbid obesity Past Surgical History Family History Noncontributory Social History Denies alcohol, tobacco, IV drug use Allergies: Coded Allergies: NO KNOWN ALLERGIES (Unverified , 07/03/21) Current Medications Current Medications Medications (Trade) Dose Ordered Sig/Neyda Route PRN Reason Start Time Stop Time Status Last Admin Meropenem 50 ml @ 17 mls/hr Q8H IV 08/09/24 08:00 08/09/24 08:24 Ondansetron HCl (Zofran) 4 mg Q8HPRN PRN IV NAUSEA / VOMITING 08/09/24 01:00 08/09/24 01:29 Sodium Chloride 1,000 ml @ 200 mls/hr Q5H IV 08/09/24 05:30 08/09/24 10:55 Ketorolac Tromethamine (Toradol Injection) 30 mg Q6HPRN PRN IV MILD PAIN (1-3 PAIN SCALE) 08/09/24 08:45 08/14/24 08:44 Vital Signs Vital Signs Date Time Temp Pulse Resp B/P (MAP) Pulse Ox O2 Delivery O2 Flow Rate FiO2 08/09/24 09:00 97.9 98 16 119/70 (86) 95 97.9 08/09/24 02:48 Room Air* 0 21 Physical Exam GEN: Morbidly obese female in no acute distress. Alert. HEENT: Normocephalic atraumatic. Moist mucous membranes. Anicteric sclerae. CV: RRR Respiratory: CTAB ABD: Obese abdomen. Minimal epigastric tenderness to palpation with minimal guarding. Abdominal ultrasound: Multiple gallstones. Common bile duct at [address] of the abdomen and pelvis: Mild peripancreatic inflammatory changes consistent with pancreatitis. MRCP: No choledocholithiasis. Labs/Diagnostic Data Labs Test 08/09/24 07:03 08/08/24 23:58 08/08/24 19:27 08/08/24 19:15 Range/Units White Blood Count 14.3 #H 4.4-10.8 10^3/uL Red Blood Count 4.32 4.0-5.20 10^6/uL Hemoglobin 13.0 12.2-16.2 g/dL Hematocrit 39.0 36.0-46.0 % Mean Corpuscular Volume 90.2 80.0-100.0 fL Mean Corpuscular Hemoglobin 30.1 28.0-32.0 pg Mean Corpuscular Hemoglobin Concent 33.3 32.0-36.0 g/dL Red Cell Distribution Width 13.8 11.8-14.3 % Platelet Count 343 140-450 10^3/uL Mean Platelet Volume 8.2 6.9-10.8 fL Neutrophils (%) (Auto) 75.4 37.0-80.0 % Lymphocytes (%) (Auto) 17.1 10.0-50.0 % Monocytes (%) (Auto) 7.1 0.0-12.0 % Eosinophils (%) (Auto) 0.2 0.0-7.0 % Basophils (%) (Auto) 0.2 0.0-2.0 % Neutrophils # (Auto) 10.8 H 1.6-8.6 10 ^3/uL Lymphocytes # (Auto) 2.4 0.4-5.4 10 ^3/uL Monocytes # (Auto) 1.0 0-1.3 10 ^3/uL Eosinophils # (Auto) 0 0-0.8 10 ^3/uL Basophils # (Auto) 0 0-0.2 10 ^3/uL Nucleated Red Blood Cells 0.0 % Sodium Level 139 136-145 mmol/L Potassium Level 3.6 3.5-5.1 mmol/L Chloride Level 107 98-107 mmol/L Carbon Dioxide Level 24 20-31 mmol/L Anion Gap 8 5-15 Blood Urea Nitrogen 6 L 9-23 mg/dL Creatinine 0.82 0.550-1.02 mg/dL Glomerular Filtration Rate Calc 103 >90 mL/min BUN/Creatinine Ratio 7.3 L 10.0-20.0 Serum Glucose 95 74-106 mg/dL Calcium Level 8.9 8.7-10.4 mg/dL Total Bilirubin 1.0 0.2-1.0 mg/dL Aspartate Amino Transferase (AST) 132 H 13-40 U/L Alanine Aminotransferase (ALT) 325 H 7-40 U/L Alkaline Phosphatase 128 H 46-116 U/L Total Protein 6.7 5.7-8.2 g/dL Albumin 4.2 3.2-4.8 g/dL Prothrombin Time 11.1 9.3-11.8 sec Prothrombin Time INR 1.05 0.9-1.15 Lactic Acid Level 0.9 0.4-2.0 mmol/L Direct Bilirubin 0.6 H <0.3 mg/dL Lactate Dehydrogenase 324 H 120-246 U/L Triglycerides Level 95 < 150 mg/dL Cholesterol Level 171 < 200 mg/dL LDL Cholesterol 113 H < 100 mg/dL HDL Cholesterol 51 40-59 mg/dL Lipase 1044 H 12-53 U/L Urine Color Yellow Yellow Urine Clarity Clear Clear Urine pH 7.0 5.0-9.0 Urine Specific [place] 1.006 1.001-1.035 Urine Protein Negative Negative Urine Ketones 1+ H Negative Urine Blood Negative Negative /uL Urine Nitrite Negative Negative Urine Bilirubin Negative Negative Urine Urobilinogen Normal Negative mg/dL Urine Leukocyte Esterase Negative Negative /uL Urine RBC 2 0 - 4 /hpf Urine Microscopic WBC 1 0-5 /HPF Urine Squamous Epithelial Cells Few <5 /hpf Urine Bacteria None seen None Seen /hpf Urine Glucose Normal Normal mg/dL Urine Test Negative Negative Assessment 1. Gallstone pancreatitis and cholecystitis Plan/Recommendation 1. Laparoscopic cholecystectomy possible open surgery Informed consent: The surgery and its risks including but not limited to infection, bleeding requiring possible blood transfusion with the risk of hepatitis or HIV infection, possible open surgery, possible cystic duct leak or retained common bile duct stone requiring further intervention such as an ERCP, possible perioperative [place] or stroke were explained to the patient. All questions were answered to her satisfaction. She expressed verbal understanding and wished to proceed with the surgery. Plan discussed with: Patient KATI ACOSTA MD Aug 09, 2024 15:02
--- NOTE | 2024-08-09 18:15 | DVHPNRES ---
Progress Note Date Seen: Aug 09, 2024 Resident Creating Document: REY JOHNS RESIDENT Has the PT tested + for MRSA If YES, has PT been informed?: No Medical Necessity Reason Pt with a Central, PICC or Fol: No Subjective Review of Systems Patient is a 24-year-old female with past medical history of gallstones who came in due to abdominal pain. According to the patient abdominal pain started yesterday 1 hour after she ate a sandwich, she describes the pain as constant, excruciating, 10/10 at onset, worsened with lying down, sneezing, coughing. Pain is accompanied with 5 episodes of vomiting today and dry heaving. Patient was diagnosed with strep throat last week and completed a course of antibiotic, last dose was last week. Patient was noted to have a lipase of 1044, CT abdomen pelvis showed mild peripancreatic inflammatory changes correlate for pancreatitis. Gallbladder ultrasound showed cholelithiasis with gallbladder wall thickening and positive sonographic Patel sign concerning for acute cholecystitis. Peripancreatic free fluid. WBC count was 19.8, total bilirubin 1.7, AST 333, ALT 484 and alkaline phosphatase 163 Past Medical History Cholelithiasis Past Surgical History section Smoke: No ALCOHOL: none Drugs: None Lives: with Family Objective vital signs Vital Sign Date Time Temp Pulse Resp B/P (MAP) Pulse Ox O2 Delivery O2 Flow Rate FiO2 08/09/24 16:02 98.2 93 18 120/75 (90) 99 98.2 08/09/24 02:48 Room Air* 0 21 Total Intake and Output 08/08/24 08/08/24 08/09/24 15:00 23:00 07:00 Intake Total 1500 ml Balance 1500 ml medications Current Medications Medications Dose Ordered Sig/Neyda Route Start Time Stop Time Status Last Admin Dose Admin Meropenem 50 ml @ 17 mls/hr Q8H IV 08/09/24 08:00 08/09/24 17:01 17 MLS/HR Ondansetron HCl 4 mg Q8HPRN PRN IV 08/09/24 01:00 08/09/24 01:29 4 MG Sodium Chloride 1,000 ml @ 200 mls/hr Q5H IV 08/09/24 05:30 08/09/24 10:55 200 MLS/HR Ketorolac Tromethamine 30 mg Q6HPRN PRN IV 08/09/24 08:45 08/14/24 08:44 Examination General Appearance: Alert, Oriented X3, Cooperative, mild distress HEENT: Atraumatic, PERRLA, EOMI, Mucous membr. moist/pink Respiratory: Clear to auscultation, Normal air movement Cardiovascular: Regular rate, Normal S1, Normal S2 Abdominal: abdominal tenderness to palpation, patel + Extremities: No clubbing, No cyanosis, No edema Skin: No significant lesion Neuro: Normal gait, Normal speech, Strength at 5/5 X4 ext, Sensation intact Psych/Mental Status: Mental status NL, Mood NL laboratory and microbiology Laboratory Tests 08/09/24 07:03 Test 08/09/24 07:03 Range/Units Serum Glucose 95 74-106 mg/dL Problem List/Assessment/Plan Problem List/Assessment/Plan Acute pancreatitis likely due to gallstones; Isabell criteria 2 points at admission Acute cholecystitis with positive sonographic Patel sign Transaminitis due to above Choledocholithiasis ruled out - serum lipase 1044 - CT abdomen pelvis: No nephrolithiasis or hydronephrosis. Mild peripancreatic inflammatory changes correlate for pancreatitis. No findings of bowel obstruction Gallbladder is contracted no calcified gallstones - abdominal USG: Cholelithiasis with gallbladder wall thickening and positive sonographic Patel's sign concerning for acute cholecystitis. There is peripancreatic free fluid. If there is concern for gallstone pancreatitis consider further evaluation with MRCP or contrast-enhanced MRI abdomen. Hepatic steatosis. - IV NS 2.5 L bolus, followed by IV NS at 200 cc/hour - IV meropenem Q 8 hours - IV Zofran 4 mg as needed - ordered MRCP: negative Surgery consult: patient will have laparoscopic cholecystectomy tomorrow DVT prophylaxis: SCDs Goals of care: Full code, discussed for >16 minutes on 08/08/2024 Plan discussed with patient Plan discussed with Dr. Esposito Plan discussed with: Patient, Other (rn) My Orders My Orders Orders - REY JOHNS Procedure Category Date Status Time Ketorolac Injection PHA 08/09/24 In Process (Toradol Injection) 08:45 * Surgical Consult CONS 08/09/24 Transmitted Date of Service: Aug 09, 2024 Billing Provider: MANASA ESPOSITO MD Common Visit Codes: [id number] INP/OBS CARE(HIGH) REY JOHNS Aug 09, 2024 18:15 MANASA ESPOSITO MD Aug 10, 2024 20:12
[2024-08-09] MEDS: KETOROLAC TROMETH 30 MG/ML 1ML VIAL IV PRN (20:11)
[2024-08-10] VITALS (12 sets, daily range): BP systolic 93–115; BP diastolic 47–71; PULSE 78–125; RESP 14–23; TEMP 97.5–99; O2SAT 93–100
[2024-08-10 07:59] LABS: Basophils # (auto) 0 10 ^3/uL (0-0.2); Basophils % (auto) 0.2 % (0.0-2.0); Eosinophils # (auto) 0.1 10 ^3/uL (0-0.8); Eosinophils % (auto) 0.4 % (0.0-7.0); Hematocrit 33.9 % (36.0-46.0); Hemoglobin 11.3 g/dL (12.2-16.2); Lymphocytes # (auto) 2.4 10 ^3/uL (0.4-5.4); Lymphocytes % (auto) 16.6 % (10.0-50.0); Mean Corpuscular Hemoglobin 29.8 pg (28.0-32.0); Mean Corpuscular Hgb Conc. 33.3 g/dL (32.0-36.0); Mean Corpuscular Volume 89.6 fL (80.0-100.0); Monocytes # (auto) 1.2 10 ^3/uL (0-1.3); Monocytes % (auto) 8.6 % (0.0-12.0); Neutrophils # (auto) 10.5 10 ^3/uL (1.6-8.6); Neutrophils % (auto) 74.2 % (37.0-80.0); Nucleated Red Blood Cells % 0.1 %; Platelet Count (auto) 276 10^3/uL (140-450); Red Blood Cells 3.79 10^6/uL (4.0-5.20); White Blood Cell 14.2 10^3/uL (4.4-10.8)
[2024-08-10 08:04] LABS: Albumin 3.6 g/dL (3.2-4.8); Alkaline Phosphatase 96 U/L (46-116); Anion Gap 10 (5-15); Aspartate Aminotransferase 33 U/L (13-40); BUN/Creatinine Ratio 10.3 (10.0-20.0); Carbon Dioxide 20 mmol/L (20-31); Sodium 138 mmol/L (136-145)
[2024-08-10 08:05] LABS: Total Protein 5.9 g/dL (5.7-8.2)
[2024-08-10 08:06] LABS: Bilirubin, Total 0.8 mg/dL (0.2-1.0)
[2024-08-10 08:07] LABS: Alanine Aminotransferase 174 U/L (7-40); Blood Urea Nitrogen 6 mg/dL (9-23); Calcium 8.5 mg/dL (8.7-10.4); Chloride 108 mmol/L (98-107); Glucose 73 mg/dL (74-106); Potassium 3.3 mmol/L (3.5-5.1)
[2024-08-10] MEDS: SODIUM CHLORIDE 0.9% 1,000 ML IV SCH (13:30)
[2024-08-10] MEDS ORDERED: KETAMINE 50mg/ML 1ml syringe IV ONE (14:55)
[2024-08-10] MEDS ORDERED: HYDROmorphone HCL 2 MG/ML VL/or syr ONE (16:13)
[2024-08-10] MEDS ORDERED: MIDAZOLAM HCL 2MG/2ML 2ml VIAL (1mg/ml) ONE (16:13)
[2024-08-10] MEDS ORDERED: fentaNYL CITRATE 100 MCG/2 ML VL ONE ×2 (16:13→17:13)
[2024-08-10] MEDS ORDERED: KETOROLAC TROMETH 30 MG/ML 1ML VIAL ONE (16:14)
[2024-08-10] MEDS ORDERED: ONDANSETRON HCL 4 MG/2 ML VIAL ONE (16:14)
[2024-08-10] MEDS ORDERED: GLYCOPYRROLATE 0.2 MG/ML 1ML VIAL ONE (16:14)
[2024-08-10] MEDS ORDERED: LIDOCAINE 2% (LOCAL ANESTH.) PF 5ml SDV ONE (16:14)
[2024-08-10] MEDS ORDERED: DexAMETHasone SOD PHOS 10MG/1ML VIAL INJ ONE (16:14)
[2024-08-10] MEDS ORDERED: PROPOFOL 10 MG/ML 20 ML IV ONE (16:14)
[2024-08-10] MEDS ORDERED: ROCURONIUM 10MG/ML 10ML VIAL IV ONE (16:14)
[2024-08-10] MEDS ORDERED: ceFAZolin 1GM VL ONE (16:52)
[2024-08-10] MEDS: LIDOCAINE W/ EPINEPHRINE 1% 20ML VIAL ONE (17:14)
--- NOTE | 2024-08-10 17:38 | DVHOP2 ---
Operative Report - 2 Report Details Date: 08/10/24 Preop Diagnosis: 1. Gallstone pancreatitis 2. Cholecystitis Postop Diagnosis: Same Surgeon: Anselmo Stringer MD Welder Repair: None Anesthesiologist: Dr. Hill Anesthesia: General, Local Drains: None Consent: The surgery and its risks including but not limited to infection, bleeding requiring possible blood transfusion with the risk of hepatitis or HIV infection, possible open surgery, possible cystic duct leak or retained common bile duct stone requiring further intervention such as an ERCP, possible perioperative [place] or stroke were explained to the patient and her parents. All questions were answered to their satisfaction. The patient expressed verbal understanding and wished to proceed with the surgery. Complications: None Estimated Blood Loss: 30 mL Fluids: 1500 mL Name of Procedure Performed Laparoscopic cholecystectomy Procedure Details Procedure Details: After induction of general anesthesia, patient's abdomen was prepped and draped in standard surgical fashion. A small supraumbilical incision was made and this incision was taken through the abdominal wall down to the fascia which was opened using electrocautery. Peritoneum was then bluntly divided gaining access to the intra-abdominal cavity. Interrupted 0 Vicryl sutures were placed through the fascial incision and using an open technique, Yamil trocar was introduced and secured using the Vicryl sutures. Abdomen was insufflated to 15 mmHg and camera was inserted. Visual examination of the intestine under the fascial incision appeared normal without injury. Under direct visualization a 5 mm bladeless trocar was placed in the subxiphoid region and two additional 5 mm bladeless trocars were placed in the right upper quadrant all under direct visualization. Examination of the right upper quadrant revealed a very large liver with distended and slightly edematous gallbladder. Gallbladder was then grasped and retracted in a cephalad direction. Minimal dissection was performed to free up the infundibulum and this was retracted in a lateral fashion. Careful blunt dissection was performed to identify the cystic duct and the cystic artery. Cystic duct appeared normal in size and this was clipped and divided using Endoclips without complication. Cystic artery was located just next to the cystic duct and this was also clipped and divided using Endoclips without complication. Gallbladder was then removed from the liver bed using electrocautery. There was no bile or stone spillage during the maneuver. Gallbladder was then removed from the abdominal cavity using an endo pouch bag and sent off the surgical field. Abdomen was then re-insufflated and hemostasis in the liver bed was achieved using electrocautery. Right upper quadrant was then well irrigated until fluid was clear. Trocars were then removed under direct visualization as the abdomen was deflated. Additional interrupted 0 Vicryl sutures were placed through the supraumbilical fascial incision and the sutures were tied down closing off the supraumbilical fascia. Surgical sites were irrigated injected with 20 mL of 1% lidocaine with epinephrine. Skin incisions were closed using karen. Surgical sites were cleaned and dried and dressings were applied. Sponge, needle, instrument count at the end of the case were reported to be correct by the nursing staff. The patient tolerated procedure well. At the time of dictation she is being awakened from general anesthesia. Specimen: Gallbladder Condition Stable Disposition Still a Patient ANSELMO STRINGER MD Aug 10, 2024 17:38
[2024-08-10] MEDS ORDERED: ONDANSETRON HCL 4 MG/2 ML VIAL IV ONE (18:00)
[2024-08-10] MEDS ORDERED: HYDROmorphone HCL 2 MG/ML VL/or syr IV PRN (18:00)
[2024-08-10] MEDS ORDERED: FAMOTIDINE (10MG/ML) 2ML VL IV ONE (18:10)
[2024-08-10] MEDS: FAMOTIDINE (10MG/ML) 2ML VL IV ONE (18:13)
--- NOTE | 2024-08-10 20:13 | DVHPN2 ---
Subjective Patient seen and examined at bedside. Complain of abdominal pain. Waiting for surgery. Reviewed: Care Plan, H&P, Labs, Medications, Previous Orders, Radiology Changes from previous H/P or p: No Changes Eyes: No Pain, No Vision change, No Conjunctivae inflammation, No Eyelid inflammation, No Other, No Redness ENT: No Ear pain, No Ear discharge, No Nose pain, No Nose discharge, No Nose congestion, No Mouth pain, No Mouth swelling, No Throat pain, No Throat swelling, No Other Cardiovascular: No Chest Pain; Palpitations; No Orthopnea, No Paroxysmal Noc. Dyspnea, No Edema, No Lt Headedness, No Other Respiratory: No Cough, No Dry, No Shortness of breath, No SOB with excertion, No Wheezing, No Hemoptysis, No Pleuritic Pain, No Sputum, No Other Gastrointestinal: Nausea, Vomiting, Abdominal Pain; No Diarrhea, No Constipation, No Melena, No Hematochezia, No Other Genitourinary: No Dysuria, No Frequency, No Incontinence, No Hematuria, No Retention, No Other Musculoskeletal: No other, No neck pain, No shoulder pain, No arm pain, No back pain, No hand pain, No leg pain, No foot pain Skin: No Rash, No Lesions, No Jaundice, No Bruising, No Other Objective Vitals Vital Signs Date Time Temp Pulse Resp B/P (MAP) Pulse Ox O2 Delivery O2 Flow Rate FiO2 08/10/24 18:11 118 20 116/64 (81) 97 08/10/24 18:00 Room Air 08/10/24 17:41 10.0 08/10/24 17:41 100 08/10/24 17:41 97.9 97.9 Intake/Output Intake and Output 08/10/24 07:00 Intake Total 1125 ml Output Total 5 ml Balance 1120 ml Intake Oral 5 ml IV Total 1120 ml Output Urine Total 5 ml # Voids 3 General Appearance: Alert, Oriented X3, Cooperative, No acute distress HEENT: Atraumatic, PERRLA, EOMI, Mucous membr. moist/pink Neck: Supple Lungs: Clear to auscultation, Normal air movement Cardiovascular: Regular rate, Normal S1, Normal S2, No murmurs, Gallops, Rubs Abdomen: Normal bowel sounds, Soft, No tenderness Neuro: Cranial nerves 3-12 NL Psych/Mental Status: Mental status NL Medications Current Medications Medications Dose Ordered Sig/Neyda Route Start Time Stop Time Status Last Admin Dose Admin Meropenem 50 ml @ 17 mls/hr Q8H IV 08/09/24 08:00 08/10/24 08:17 17 MLS/HR Ondansetron HCl 4 mg Q8HPRN PRN IV 08/09/24 01:00 08/09/24 01:29 4 MG Ketorolac Tromethamine 30 mg Q6HPRN PRN IV 08/09/24 08:45 08/14/24 08:44 08/10/24 07:17 30 MG Sodium Chloride 1,000 ml @ 75 mls/hr [id number] IV 08/10/24 13:30 08/10/24 13:30 75 MLS/HR Hydromorphone HCl 0.5 mg Q10M PRN IV 08/10/24 18:00 08/10/24 22:00 Laboratory Results Laboratory Tests 08/10/24 06:35 Chemistry Test 08/10/24 06:35 Albumin 3.6 g/dL (3.2-4.8) Calcium Level 8.5 mg/dL (8.7-10.4) L Total Protein 5.9 g/dL (5.7-8.2) LFT Test 08/10/24 06:35 Alanine Aminotransferase (ALT) 174 U/L (7-40) H Alkaline Phosphatase 96 U/L (46-116) Aspartate Amino Transferase (AST) 33 U/L (13-40) Total Bilirubin 0.8 mg/dL (0.2-1.0) Urinalysis Test 08/08/24 19:15 Urine Color Yellow (Yellow) Urine Clarity Clear (Clear) Urine pH 7.0 (5.0-9.0) Urine Specific [place] 1.006 (1.001-1.035) Urine Protein Negative (Negative) Urine Ketones 1+ (Negative) H Urine Blood Negative /uL (Negative) Urine Nitrite Negative (Negative) Urine Bilirubin Negative (Negative) Urine Urobilinogen Normal mg/dL (Negative) Urine Leukocyte Esterase Negative /uL (Negative) Urine RBC 2 /hpf (0 - 4) Urine Microscopic WBC 1 /HPF (0-5) Urine Squamous Epithelial Cells Few /hpf (<5) Urine Bacteria None seen /hpf (None Seen) Urine Glucose Normal mg/dL (Normal) Urine Test Negative (Negative) Labs and/or images reviewed: Labs reviewed by me Assessment/Plan Assessment/Plan Acute pancreatitis likely due to gallstones Acute cholecystitis with positive sonographic Patel sign Transaminitis due to above Choledocholithiasis ruled out Continuing current management. Continuing with IV NS 2.5 L bolus, followed by IV NS at 200 cc/hour Continuing with IV meropenem Q 8 hours, IV Zofran 4 mg as needed Review MRCP negative for choledocholithiasis For surgery for laparoscopic cholecystectomy Continuing pain medication with IV morphine. Continuing with IV fluid Continuing to keep NPO This medical document was created using an electronic medical record system with [email or web address] direct computerized dictation system. Although this document has been carefully reviewed, there may still be some phonetic and typographical errors. These areas are purely typographical due to imperfections of the software programs, and do not reflect any compromise in the patient's medical care. Plan discussed with: Patient My Orders Orders - MANASA ESPOSITO MD Procedure Category Date Status Time Sodium Chloride 0.9% PHA 08/10/24 In Process 13:30 Date of Service: Aug 10, 2024 Billing Provider: MANASA ESPOSITO MD Common Visit Codes: [id number] INP/OBS CARE(HIGH) MANASA ESPOSITO MD Aug 10, 2024 20:13
[2024-08-10] MEDS: diphenhdrAMINE HCL 50 MG/1 ML VL IV ONE (21:25)
[2024-08-11] VITALS (11 sets, daily range): BP systolic 99–144; BP diastolic 54–87; PULSE 60–95; RESP 16–18; TEMP 97.4–98.3; O2SAT 95–99
[2024-08-11 07:39] LABS: Albumin 3.7 g/dL (3.2-4.8); Alkaline Phosphatase 88 U/L (46-116); Anion Gap 10 (5-15); Aspartate Aminotransferase 19 U/L (13-40); BUN/Creatinine Ratio 11.4 (10.0-20.0); Calcium 9.4 mg/dL (8.7-10.4); Carbon Dioxide 20 mmol/L (20-31); Chloride 106 mmol/L (98-107); Lipase 25 U/L (12-53); Sodium 136 mmol/L (136-145)
[2024-08-11 07:40] LABS: Bilirubin, Total 0.4 mg/dL (0.2-1.0); Total Protein 6.1 g/dL (5.7-8.2)
[2024-08-11 07:41] LABS: Alanine Aminotransferase 119 U/L (7-40); Basophils # (auto) 0 10 ^3/uL (0-0.2); Basophils % (auto) 0.1 % (0.0-2.0); Blood Urea Nitrogen 5 mg/dL (9-23); Eosinophils # (auto) 0 10 ^3/uL (0-0.8); Glucose 110 mg/dL (74-106); Hematocrit 31.2 % (36.0-46.0); Hemoglobin 10.7 g/dL (12.2-16.2); Lymphocytes % (auto) 8.7 % (10.0-50.0); Mean Corpuscular Hemoglobin 30.4 pg (28.0-32.0); Mean Corpuscular Hgb Conc. 34.4 g/dL (32.0-36.0); Mean Corpuscular Volume 88.4 fL (80.0-100.0); Monocytes # (auto) 0.3 10 ^3/uL (0-1.3); Monocytes % (auto) 2.3 % (0.0-12.0); Neutrophils # (auto) 9.9 10 ^3/uL (1.6-8.6); Neutrophils % (auto) 88.9 % (37.0-80.0); Platelet Count (auto) 273 10^3/uL (140-450); Red Blood Cells 3.53 10^6/uL (4.0-5.20); Red Cell Distribution Width 13.7 % (11.8-14.3); White Blood Cell 11.1 10^3/uL (4.4-10.8)
--- NOTE | 2024-08-11 08:55 | DVHPN2 ---
Progress Note - Dictate Date Seen: Aug 11, 2024 Has the PT tested + for MRSA If YES, has PT been informed?: No Medical Necessity Reason Pt with a Central, PICC or Fol: No Subjective E: no major events o/n. no complaints. vital signs Vital Sign Date Time Temp Pulse Resp B/P (MAP) Pulse Ox O2 Delivery O2 Flow Rate FiO2 08/11/24 05:00 98.0 72 16 99/54 (69) 99 98.0 08/10/24 23:35 Facial BiPAP Mask 30 08/10/24 23:32 0.0 Total Intake and Output 08/10/24 08/10/24 08/11/24 15:00 23:00 07:00 Intake Total 1000 ml 0 ml 450 ml Output Total 450 ml Balance 1000 ml 0 ml 0 ml medications Current Medications Medications Dose Ordered Sig/Neyda Route Start Time Stop Time Status Last Admin Dose Admin Meropenem 50 ml @ 17 mls/hr Q8H IV 08/09/24 08:00 08/11/24 00:58 17 MLS/HR Ondansetron HCl 4 mg Q8HPRN PRN IV 08/09/24 01:00 08/09/24 01:29 4 MG Ketorolac Tromethamine 30 mg Q6HPRN PRN IV 08/09/24 08:45 08/14/24 08:44 08/11/24 06:08 30 MG Sodium Chloride 1,000 ml @ 75 mls/hr [id number] IV 08/10/24 13:30 08/10/24 13:30 75 MLS/HR objective GEN: NAD ABD: surgical dressings clean and dry. laboratory and microbiology Laboratory Tests 08/11/24 06:14 Test 08/11/24 06:14 Range/Units Serum Glucose 110 H 74-106 mg/dL Assessment/Plan A: 1. s/p lap cholecystectomy POD #1 doing well. P: 1. stable from surgery POV 2. remove bandages tomorrow. ok to shower and get incisions wet tomorrow 3. f/u in clinic 08/18. call [phone] for appt. Plan discussed with: Patient KATI ACOSTA MD Aug 11, 2024 08:55
--- NOTE | 2024-08-11 16:45 | DVHPNRES ---
Progress Note Date Seen: Aug 11, 2024 Resident Creating Document: REY JOHNS RESIDENT Has the PT tested + for MRSA If YES, has PT been informed?: No Medical Necessity Reason Pt with a Central, PICC or Fol: No Subjective Review of Systems Patient is a 24-year-old female with past medical history of gallstones who came in due to abdominal pain. According to the patient abdominal pain started yesterday 1 hour after she ate a sandwich, she describes the pain as constant, excruciating, 10/10 at onset, worsened with lying down, sneezing, coughing. Pain is accompanied with 5 episodes of vomiting today and dry heaving. Patient was diagnosed with strep throat last week and completed a course of antibiotic, last dose was last week. Patient was noted to have a lipase of 1044, CT abdomen pelvis showed mild peripancreatic inflammatory changes correlate for pancreatitis. Gallbladder ultrasound showed cholelithiasis with gallbladder wall thickening and positive sonographic Patel sign concerning for acute cholecystitis. Peripancreatic free fluid. WBC count was 19.8, total bilirubin 1.7, AST 333, ALT 484 and alkaline phosphatase 163 Past Medical History Cholelithiasis Past Surgical History section Smoke: No ALCOHOL: none Drugs: None Lives: with Family Objective vital signs Vital Sign Date Time Temp Pulse Resp B/P (MAP) Pulse Ox O2 Delivery O2 Flow Rate FiO2 08/11/24 14:05 95 Room Air 08/11/24 14:05 0 21 08/11/24 13:00 97.7 78 16 144/87 (106) 97.7 Total Intake and Output 08/10/24 08/10/24 08/11/24 15:00 23:00 07:00 Intake Total 1000 ml 0 ml 450 ml Output Total 450 ml Balance 1000 ml 0 ml 0 ml medications Current Medications Medications Dose Ordered Sig/Neyda Route Start Time Stop Time Status Last Admin Dose Admin Meropenem 50 ml @ 17 mls/hr Q8H IV 08/09/24 08:00 08/11/24 15:56 17 MLS/HR Ondansetron HCl 4 mg Q8HPRN PRN IV 08/09/24 01:00 08/09/24 01:29 4 MG Ketorolac Tromethamine 30 mg Q6HPRN PRN IV 08/09/24 08:45 08/14/24 08:44 08/11/24 12:44 30 MG Sodium Chloride 1,000 ml @ 75 mls/hr [id number] IV 08/10/24 13:30 08/11/24 09:01 75 MLS/HR Examination General Appearance: Alert, Oriented X3, Cooperative, mild distress HEENT: Atraumatic, PERRLA, EOMI, Mucous membr. moist/pink Respiratory: Clear to auscultation, Normal air movement Cardiovascular: Regular rate, Normal S1, Normal S2 Abdominal: abdominal tenderness to palpation, patel + Extremities: No clubbing, No cyanosis, No edema Skin: No significant lesion Neuro: Normal gait, Normal speech, Strength at 5/5 X4 ext, Sensation intact Psych/Mental Status: Mental status NL, Mood NL laboratory and microbiology Laboratory Tests 08/11/24 06:14 Test 08/11/24 06:14 Range/Units Serum Glucose 110 H 74-106 mg/dL Problem List/Assessment/Plan Problem List/Assessment/Plan S/P laparoscopic choelcystectomy Acute pancreatitis likely due to gallstones; [place] criteria 2 points at admission Acute cholecystitis with positive sonographic Patel sign Transaminitis due to above Choledocholithiasis ruled out Advance diet: full liquid diet - serum lipase 1044 - CT abdomen pelvis: No nephrolithiasis or hydronephrosis. Mild peripancreatic inflammatory changes correlate for pancreatitis. No findings of bowel obstruction Gallbladder is contracted no calcified gallstones - abdominal USG: Cholelithiasis with gallbladder wall thickening and positive sonographic Patel's sign concerning for acute cholecystitis. There is peripancreatic free fluid. If there is concern for gallstone pancreatitis consider further evaluation with MRCP or contrast-enhanced MRI abdomen. Hepatic steatosis. IV 75 cc/h - IV meropenem Q 8 hours - IV Zofran 4 mg as needed - ordered MRCP: negative DVT prophylaxis: SCDs Goals of care: Full code, discussed for >16 minutes on 08/08/2024 Plan discussed with patient Plan discussed with Dr. Akbar Time spent 23 min Plan discussed with: Patient, Other (rn) My Orders My Orders Orders - REY JOHNS RESIDENT Procedure Category Date Status Time Full Liq Diet DIET 08/11/24 Transmitted Dinner Date of Service: Aug 11, 2024 Billing Provider: TODD AKBAR MD Common Visit Codes: [id number] INP/OBS CARE(HIGH) REY JOHNS RESIDENT Aug 11, 2024 16:45 TODD AKBAR MD Aug 13, 2024 16:22
[2024-08-12] VITALS (7 sets, daily range): BP systolic 101–124; BP diastolic 50–66; PULSE 60–88; RESP 16–20; TEMP 36.6; O2SAT 93–98
[2024-08-12] MEDS ORDERED: TRAM-626 PO (08:51)
--- NOTE | 2024-08-12 15:23 | DVHDSRES ---
Discharge Summary Date of Admission Resident Creating Document: REY JOHNS RESIDENT Aug 08, 2024 at 23:31 Date of Discharge: Aug 12, 2024 Admitting Diagnosis S/P laparoscopic choelcystectomy Acute pancreatitis likely due to gallstones; [place] criteria 2 points at admission Acute cholecystitis with positive sonographic Patel sign Labs/Diagnostic Data: Laboratory Results Test 08/11/24 06:14 08/08/24 23:58 08/08/24 19:15 White Blood Count 11.1 10^3/uL (4.4-10.8) Red Blood Count 3.53 10^6/uL (4.0-5.20) Hemoglobin 10.7 g/dL (12.2-16.2) Hematocrit 31.2 % (36.0-46.0) Mean Corpuscular Volume 88.4 fL (80.0-100.0) Mean Corpuscular Hemoglobin 30.4 pg (28.0-32.0) Mean Corpuscular Hemoglobin Concent 34.4 g/dL (32.0-36.0) Red Cell Distribution Width 13.7 % (11.8-14.3) Platelet Count 273 10^3/uL (140-450) Mean Platelet Volume 8.5 fL (6.9-10.8) Neutrophils (%) (Auto) 88.9 % (37.0-80.0) Lymphocytes (%) (Auto) 8.7 % (10.0-50.0) Monocytes (%) (Auto) 2.3 % (0.0-12.0) Eosinophils (%) (Auto) 0.0 % (0.0-7.0) Basophils (%) (Auto) 0.1 % (0.0-2.0) Neutrophils # (Auto) 9.9 10 ^3/uL (1.6-8.6) Lymphocytes # (Auto) 1.0 10 ^3/uL (0.4-5.4) Monocytes # (Auto) 0.3 10 ^3/uL (0-1.3) Eosinophils # (Auto) 0 10 ^3/uL (0-0.8) Basophils # (Auto) 0 10 ^3/uL (0-0.2) Nucleated Red Blood Cells 0.0 % Sodium Level 136 mmol/L (136-145) Potassium Level 4.0 mmol/L (3.5-5.1) Chloride Level 106 mmol/L (98-107) Carbon Dioxide Level 20 mmol/L (20-31) Anion Gap 10 (5-15) Blood Urea Nitrogen 5 mg/dL (9-23) Creatinine 0.44 mg/dL (0.550-1.02) Glomerular Filtration Rate Calc 139 mL/min (>90) BUN/Creatinine Ratio 11.4 (10.0-20.0) Serum Glucose 110 mg/dL (74-106) Calcium Level 9.4 mg/dL (8.7-10.4) Total Bilirubin 0.4 mg/dL (0.2-1.0) Aspartate Amino Transferase (AST) 19 U/L (13-40) Alanine Aminotransferase (ALT) 119 U/L (7-40) Alkaline Phosphatase 88 U/L (46-116) Total Protein 6.1 g/dL (5.7-8.2) Albumin 3.7 g/dL (3.2-4.8) Lipase 25 U/L (12-53) Prothrombin Time 11.1 sec (9.3-11.8) Prothrombin Time INR 1.05 (0.9-1.15) Lactic Acid Level 0.9 mmol/L (0.4-2.0) Direct Bilirubin 0.6 mg/dL (<0.3) Lactate Dehydrogenase 324 U/L (120-246) Triglycerides Level 95 mg/dL (< 150) Cholesterol Level 171 mg/dL (< 200) LDL Cholesterol 113 mg/dL (< 100) HDL Cholesterol 51 mg/dL (40-59) Urine Color Yellow (Yellow) Urine Clarity Clear (Clear) Urine pH 7.0 (5.0-9.0) Urine Specific [place] 1.006 (1.001-1.035) Urine Protein Negative (Negative) Urine Ketones 1+ (Negative) Urine Blood Negative /uL (Negative) Urine Nitrite Negative (Negative) Urine Bilirubin Negative (Negative) Urine Urobilinogen Normal mg/dL (Negative) Urine Leukocyte Esterase Negative /uL (Negative) Urine RBC 2 /hpf (0 - 4) Urine Microscopic WBC 1 /HPF (0-5) Urine Squamous Epithelial Cells Few /hpf (<5) Urine Bacteria None seen /hpf (None Seen) Urine Glucose Normal mg/dL (Normal) Urine Test Negative (Negative) Other Laboratory Tests 08/11/24 06:14 Brief Hx & Hospital Course: A 24-year-old female with a past medical history of gallstones presented with acute abdominal pain that started 1 hour after consuming a sandwich. The pain was described as constant, excruciating, and worsened with lying down, sneezing, or coughing. Imaging revealed cholelithiasis with gallbladder wall thickening, a positive sonographic Patel sign, and mild peripancreatic inflammatory changes consistent with pancreatitis. Her laboratory results showed a lipase of 1044, elevated liver enzymes (AST 333, ALT 484), and a total bilirubin of 1.7. CT imaging ruled out bowel obstruction, nephrolithiasis, or hydronephrosis, and no calcified gallstones were noted. The patient was diagnosed with acute cholecystitis and pancreatitis likely due to gallstones. MRCP ruled out choledocholithiasis. Laparoscopic cholecystectomy was done with no complications. The patient's postoperative course was uneventful, with stable hemodynamics and progressive improvement in symptoms. She was transitioned to a full liquid diet and continued on supportive care with analgesics. Discharge planning focused on pain control and follow-up to monitor recovery. The patient expressed understanding of her diagnosis and post-discharge care plan. She was discharged in stable condition with instructions to follow up with her primary care provider and surgeon. General Appearance: Alert, Oriented X3, Cooperative, mild distress HEENT: Atraumatic, PERRLA, EOMI, Mucous membr. moist/pink Respiratory: Clear to auscultation, Normal air movement Cardiovascular: Regular rate, Normal S1, Normal S2 Abdominal: abdominal tenderness to palpation, patel + Extremities: No clubbing, No cyanosis, No edema Skin: No significant lesion Neuro: Normal gait, Normal speech, Strength at 5/5 X4 ext, Sensation intact Psych/Mental Status: Mental status NL, Mood NL Time spent on care 23 min Case discussed with Dr Akbar Consults/Reason for consult surgery due to acute cholecystitis Operations or Procedures Laparoscopic cholecystectomy Procedure Details Procedure Details: After induction of general anesthesia, patient's abdomen was prepped and draped in standard surgical fashion. A small supraumbilical incision was made and this incision was taken through the abdominal wall down to the fascia which was opened using electrocautery. Peritoneum was then bluntly divided gaining access to the intra-abdominal cavity. Interrupted 0 Vicryl sutures were placed through the fascial incision and using an open technique, Yamil trocar was introduced and secured using the Vicryl sutures. Abdomen was insufflated to 15 mmHg and camera was inserted. Visual examination of the intestine under the fascial incision appeared normal without injury. Under direct visualization a 5 mm bladeless trocar was placed in the subxiphoid region and two additional 5 mm bladeless trocars were placed in the right upper quadrant all under direct visualization. Examination of the right upper quadrant revealed a very large liver with distended and slightly edematous gallbladder. Gallbladder was then grasped and retracted in a cephalad direction. Minimal dissection was performed to free up the infundibulum and this was retracted in a lateral fashion. Careful blunt dissection was performed to identify the cystic duct and the cystic artery. Cystic duct appeared normal in size and this was clipped and divided using Endoclips without complication. Cystic artery was located just next to the cystic duct and this was also clipped and divided using Endoclips without complication. Gallbladder was then removed from the liver bed using electrocautery. There was no bile or stone spillage during the maneuver. Gallbladder was then removed from the abdominal cavity using an endo pouch bag and sent off the surgical field. Abdomen was then re-insufflated and hemostasis in the liver bed was achieved using electrocautery. Right upper quadrant was then well irrigated until fluid was clear. Trocars were then removed under direct visualization as the abdomen was deflated. Additional interrupted 0 Vicryl sutures were placed through the supraumbilical fascial incision and the sutures were tied down closing off the supraumbilical fascia. Surgical sites were irrigated injected with 20 mL of 1% lidocaine with epinephrine. Skin incisions were closed using karen. Surgical sites were cleaned and dried and dressings were applied. Sponge, needle, instrument count at the end of the case were reported to be correct by the nursing staff. The patient tolerated procedure well. At the time of dictation she is being awakened from general anesthesia. Specimen: Gallbladder Condition Stable Clinical history: Pancreatitis CLINICAL DATA: Pancreatitis COMPARISON: Ultrasound of 08 09 2024 TECHNIQUE: MR imaging of the abdomen was performed using routine protocol. The following sequences were obtained: Three plane localizer Coronal T2 HASTE large FOV/ small FOV Axial T1 pappas in and out of phase Axial T2 HASTE and STIR SagittalT2 fat Sat Precontrast 3-D FLASH Postcontrast 3-D FLASH: Arterial, venous and delayed phases. Coronal MRCP 3D FINDINGS: Lung bases: Limited view of the lung bases demonstrates minimal atelectasis. No pleural effusion is seen. Abdomen: Multiple gallstones consistent with prior ultrasound identified. No fluid surrounding the gallbladder. No choledocholithiasis. Normal common bile duct. Normal kidneys. Normal adrenal glands. No hepatosplenomegaly. No retroperitoneal adenopathy. Normal aorta. 1.5 cm left renal cyst. There is very minimal peripancreatic free fluid anteriorly ventral to the body of the pancreas. The pancreas intrinsically appears unremarkable. No bowel obstruction. Impression: Gallstones No fluid surrounding the gallbladder. Gallbladder wall within normal limits. No choledocholithiasis. Normal pancreatic duct. Tiny amount of fluid ventral to the body of the pancreas. Normal appearance to the common bile duct. Condition at Discharge: Stable Final Diagnosis/Problems List S/P laparoscopic choelcystectomy Acute pancreatitis likely due to gallstones; [place] criteria 2 points at admission Acute cholecystitis with positive sonographic Patel sign Transaminitis due to above Choledocholithiasis ruled out Discharge Disposition: Home Discharge Instruct/Medications Diet: See Comment Diet comment: low fat Activity: Light activity Follow Up/Referral: appt with Dr Stringer, f/u [place] [facility] [place] Villarreal Medications: see prescription Discharge Statement: "Patient was advised to return to the ER or call 911 if any headaches, dizziness, shortness of breath, chest pain, abdominal pain, bleeding, fevers, or worsening of medical condition. Patient was counseled about treatment plan, medications, possible side effects, patientverbalized understanding. All questions were answered to the best of my ability. This discharge took greater then 30 minutes in planning, reviewing documentation, counseling the patient, and discussing with other team members." ASSESSMENT ASSESSMENT Assessment sp laparoscopic cholecystectomy pancreatitis Date of Service: Aug 12, 2024 Billing Provider: TODD AKBAR MD Common Visit Codes: [id number] DISCH DAY >30min REY JOHNS Aug 12, 2024 15:23 TODD AKBAR MD Aug 13, 2024 16:23
== END 2024-08-12 15:45 | disposition home or self-care (01) | DRG 263 ==
LOC: ER 18:53 → TELE 23:31 → TELE-WESTW 23:39
PROVIDERS: ADMIT Student in an Organized Health Care Education/Training Program; ATTEND Student in an Organized Health Care Education/Training Program
PROC: 5A09357 Assistance with Respiratory Ventilation, Less than 24 Consecutive Hours, Continuous Positive Airway Pressure (ICD-10-PCS; 2024-08-10)
PROC: 0FT44ZZ Resection of Gallbladder, Percutaneous Endoscopic Approach (ICD-10-PCS; principal; 2024-08-10 16:42)
DX: K85.10 Biliary acute pancreatitis without necrosis or infection (principal); K80.00 Calculus of gallbladder with acute cholecystitis without obstruction; K76.0 Fatty (change of) liver, not elsewhere classified; R74.01 Elevation of levels of liver transaminase levels; E66.01 Morbid (severe) obesity due to excess calories; Z68.42 Body mass index [BMI] 45.0-49.9, adult; Z79.899 Other long term (current) drug therapy
CPT/HCPCS: 36415; 71045; 74176; 74181; 76705; 80053; 80061; 81001; 81025; 82248; 82310; 83605; 83615; 83690; 85025; 85610; 86850; 86900; 86901; 94660; 96365; G0378; J0690; J1100; J1885; J2003; J2185; J2250; J2405; J2704; J3490; Q0162